=== PATIENT | male | born 1940 | race Caucasian/White ===

== ENCOUNTER 2016-11-19 13:18 | Emergency (ER) | payer MEDICARE ==
[~2016-11-19] VITALS: Ht 172.7 cm; Wt 76.8 kg
[2016-11-19 13:29] VITALS: BP 152/77; PULSE 92; RESP 16; O2SAT 99
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
[2016-11-19] MEDS ORDERED: HYDROcodone-APAP 5-325 mg Tablet PO ONE (14:30)
[2016-11-19 15:16] VITALS: BP 130/85; PULSE 79; RESP 15; O2SAT 98
== END 2016-11-19 15:00 | disposition home or self-care (01) ==
LOC: SED 13:18
DX: S69.92XA Unspecified injury of left wrist, hand and finger(s), initial encounter (principal); V28.4XXA Motorcycle driver injured in noncollision transport accident in traffic accident, initial encounter; Y93.55 Activity, bike riding; Y92.009 Unspecified place in unspecified non-institutional (private) residence as the place of occurrence of the external cause; Y99.8 Other external cause status; I10 Essential (primary) hypertension; E11.9 Type 2 diabetes mellitus without complications; Z96.653 Presence of artificial knee joint, bilateral